=== PATIENT | female | born 1955 | race African-American/Black ===

== ENCOUNTER 2016-06-08 21:33 | Emergency (ER) | payer OTHER, MEDICARE ==
[~2016-06-08] VITALS: Ht 167.6 cm; Wt 95.3 kg
[~2016-06-08 21:33] MED LIST: TAMIFLU 75MG75 MG PO
--- NOTE | 2016-06-08 21:42 | ED CARDIAC/CP/PALPITATIONS ---
History of Present Illness General Chief Complaint: Chest Pain Stated Complaint: CP, DIFF BREATHING [id number] Source: patient Exam Limitations: no limitations Vital Signs & Intake/Output Vital Signs & Intake/Output Vital Signs Date Time Temp Pulse Resp B/P Pulse O2 O2 Flow FiO2 Ox Delivery Rate 06/08 2159 96 06/083 98.3 71 16 145/82 96 Room Air Allergies Coded Allergies: NO KNOWN ALLERGIES (08/21/15) Reconcile Medications Amoxicillin/Potassium Clav (Augmentin 875-125 Tablet) 875 MG-125 MG TABLET 1 TAB PO BID BRONCHITIS Oseltamivir Phosphate (Tamiflu 75MG) 75 MG CAP 1 CAP PO BID FLU Prednisolone 15 MG/5 ML SOLUTION 10 ML PO QDAY ASTHMA Triage Note: PT TO ED C/O "IT FEELS LIKE SOMEONE'S SITTING ON MY CHEST" X2 MONTHS. PT STATES SHE WAS SEEN AT [place] ED, HAD EKG AND CHEST XRAY AND WAS TOLD IT WAS NORMAL. FOLLOWED UP WITH PCP AND WAS TAKING INHALER WITH NO RELIEF. TONIGHT PT STATES SHE FELT LIGHTHEADED AND NAUSEOUS IN ADDITION TO CHEST PRESSURE. DENIES FEVERS/CHILLS/BODY ACHES. Triage Nurses Notes Reviewed? yes Onset: Gradual Duration: week(s):, waxing and waning Timing: recent history Quality/Severity: mild, moderate Location: central Radiation: no radiation Activities at Onset: none Prior Chest Pain/Card Workup: seen in ed previously at [place], given inhaler. Modifying Factors: Improves With: rest. HPI: 60 yo woman in prior good health, presents with chest pressure and wheezing, intermittenly for the past month. She notes also increased sputum and cough over the past few days. She notes that she was seen at the [place] a few weeks ago. By her report, she shares that she had a negative cxr, was given an inhaler, and states that she did not feel better. She states, "it feels like someone is sitting on my chest." Past History Travel History Traveled to [place] past 21 day No Medical History Any Pertinent Medical History? see below for history Cardiovascular: hyperlipidemia Surgical History Surgical History: none Psychosocial History Who do you live with Family What is your primary language Kiswahili Family History Hx Contributory? No Review of Systems Review of Systems Constitutional: Reports: no symptoms. EENTM: Reports: no symptoms. Respiratory: Reports: no symptoms. Cardiovascular: Reports: no symptoms. GI: Reports: no symptoms. Genitourinary: Reports: no symptoms. Musculoskeletal: Reports: no symptoms. Skin: Reports: no symptoms. Neurological/Psychological: Reports: no symptoms. Hematologic/Endocrine: Reports: no symptoms. Immunologic/Allergic: Reports: no symptoms. All Other Systems: Reviewed and Negative Physical Exam Physical Exam General Appearance: well developed/nourished, no apparent distress Head: atraumatic, normal appearance Eyes: Bilateral: normal appearance. Ears, Nose, Throat: normal pharynx, normal ENT inspection Neck: normal inspection, supple, full range of motion Respiratory: chest non-tender, rhonchi Cardiovascular: regular rate/rhythm Gastrointestinal: normal bowel sounds, soft, non-tender, no organomegaly Back: normal inspection, normal range of motion Extremities: normal inspection, normal capillary refill, normal range of motion, no edema Neurologic/Psych: no motor/sensory deficits, awake, alert, oriented x 3 Skin: intact, normal color, warm/dry Core Measures ACS in differential dx? No Severe Sepsis Present: No Septic Shock Present: No Progress Differential Diagnosis: AMI, CHF/pulm edema, costochondritis, pneumonia Plan of Care: Orders Procedure Date/time Status TROPONIN LEVEL 06/08 2141 Complete D-DIMER 06/08 2141 Complete COMPREHENSIVE METABOLIC PANEL 06/08 2141 Complete CBC WITHOUT DIFFERENTIAL 06/08 2141 Complete EKG 06/08 2133 Active Current Medications Sig/Len Start time Last Medication Dose Stop Time Status Admin Amoxicillin/ 1,000 MG ONCE ONE 06/08 2314 UNVr Clavulanate Potassium 06/08 2315 (Augmentin) Prednisone 60 MG ONCE ONE 06/08 2314 UNVr 06/08 2315 Laboratory Tests 06/08/160: Anion Gap 12, Estimated GFR > 60, BUN/Creatinine Ratio 13.3, Glucose 101 H, Calcium 8.9, Total Bilirubin 0.4, AST 19, ALT 22, Alkaline Phosphatase 79, Troponin I < 0.01, Total Protein 6.8, Albumin 3.7, Globulin 3.1, Albumin/ Globulin Ratio 1.2, D-Dimer < 200, CBC w Diff NO MAN DIFF REQ, RBC 4.16 L, MCV 84.4, MCH 27.7, RDW 14.8 H, MPV 8.4, Gran % 40.2 L, Lymphocytes % 50.6, Monocytes % 6.7, Eosinophils % 1.7, Basophils % 0.8, Absolute Granulocytes 3.0, Absolute Lymphocytes 3.7 H, Absolute Monocytes 0.5, Absolute Eosinophils 0.1, Absolute Basophils 0.1, PUBS MCHC 32.8 L Diagnostic Imaging: Viewed by Me: Radiology Read. Discussed w/RAD: Radiology Read. CXR Impression: developing edema or pneumonia... full report below. Initial ED EKG: normal axis, normal intervals, normal p-waves, normal QRS complex, normal sinus rhythm Comments: PATIENT: GONZALO FAIRCHILD PRESENT AGE: 60 PATIENT ACCOUNT NO: [id number] : 55 LOCATION: [facility] ORDERING PHYSICIAN: KAM NIELSON MD SERVICE DATE: 06/08/16 EXAM TYPE: RAD - XRY-PORTABLE CHEST XRAY EXAMINATION: XR PORTABLE CHEST CLINICAL INFORMATION: Chest pain. COMPARISON: Chest radiographs August 25, 2010. TECHNIQUE: Portable AP view of the chest was obtained. FINDINGS: Low lung volumes. No pleural effusion and no pneumothorax. Bibasilar interstitial opacities and hazy airspace opacities could reflect developing edema or atypical pneumonia. Cardiac silhouette size is normal. There are no acute osseous findings. Anterior fusion hardware at the cervicothoracic junction. IMPRESSION: There are more prominent bibasilar interstitial and hazy airspace opacities that could reflect developing edema or pneumonia. DICTATED BY: SOHA KWOK MD DATE/TIME DICTATED:06/08/162238 WINDMILL MECHANIC:MARGARET DATE/TIME TRANSCRIBED:06/08/162238 CONFIDENTIAL, DO NOT COPY WITHOUT APPROPRIATE AUTHORIZATION. <Electronically signed in Other Vendor System> SIGNED BY: SOHA KWOK MD 06/08/16 Departure Departure Disposition: HOME OR SELF CARE Condition: Stable Clinical Impression Primary Impression: Pneumonia Referrals: BRITANY TAVERAS,LULU Hameed (PCP/Family) Departure Forms: Customer Survey General Discharge Information Prescriptions: Current Visit Scripts Prednisolone 10 ML PO QDAY #40 ML Amoxicillin/Potassium Clav (Augmentin 875-125 Tablet) 1 TAB PO BID #20 TAB Comments 06/08/16, 23:16.... pt felt better after neb... pt with symptoms for more than one month, most consistent with pneumonia. Pt home with abx, steroids. She has an albuterol MDI... Close follow up advocated. I doubt chf. Critical Care Note Critical Care Note Critical Care Time: non-applicable
[2016-06-08 22:19] LABS: ABSOLUTE BASOPHIL COUNT 0.1 /CUMM (0.0-0.2); ABSOLUTE EOSINOPHIL COUNT 0.1 /CUMM (0.0-0.7); ABSOLUTE LYMPH COUNT 3.7 /CUMM (1.2-3.4); ABSOLUTE MONOCYTE COUNT 0.5 /CUMM (0.10-0.60); BASOPHIL % 0.8 % (0.0-2.0); EOSINOPHIL % 1.7 % (0-5); GRANULOCYTE % 40.2 % (42.2-75.2); HEMATOCRIT 35.1 % (37-47); MEAN CORPUSCULAR HGB 27.7 PG (27.0-31.0); MEAN CORPUSCULAR HGB CONC 32.8 G/DL (33.0-37.0); MEAN CORPUSCULAR VOLUME 84.4 FL (81.0-99.0); MEAN PLATELET VOLUME 8.4 FL (7.4-10.4); PLATELET COUNT 284 /CUMM (130-400); RBC DISTRIBUTION WIDTH 14.8 % (11.5-14.5); RED BLOOD CELL CT 4.16 /CUMM (4.20-5.40); WHITE BLOOD CELL COUNT 7.4 /CUMM (4.8-10.8)
--- NOTE | 2016-06-08 22:44 | RADIOLOGY REPORT ---
EXAMINATION: XR PORTABLE CHEST CLINICAL INFORMATION: Chest pain. COMPARISON: Chest radiographs August 25, 2010. TECHNIQUE: Portable AP view of the chest was obtained. FINDINGS: Low lung volumes. No pleural effusion and no pneumothorax. Bibasilar interstitial opacities and hazy airspace opacities could reflect developing edema or atypical pneumonia. Cardiac silhouette size is normal. There are no acute osseous findings. Anterior fusion hardware at the cervicothoracic junction. IMPRESSION: There are more prominent bibasilar interstitial and hazy airspace opacities that could reflect developing edema or pneumonia.
[2016-06-08] MEDS ORDERED: AUGMENTIN 875-1 EACH PO (23:14)
[2016-06-08] MEDS ORDERED: PREDNISOLO15 MG/5 M4 PO (23:14)
[2016-06-08 23:40] VITALS: BP 138/85
== END 2016-06-08 23:39 ==
LOC: ERH 21:33
PROVIDERS: Pediatrics
DX: J18.9 Pneumonia, unspecified organism (principal); R07.89 Other chest pain
CPT/HCPCS: 1263; 93005; 93010; J3490

== ENCOUNTER 2016-06-11 23:36 | Emergency (ER) | payer OTHER, MEDICARE ==
[~2016-06-11] VITALS: Ht 167.6 cm; Wt 96.2 kg
[~2016-06-11 23:36] MED LIST changes: +AUGMENTIN 875-1 EACH PO; +PREDNISOLO15 MG/5 M4 PO
--- NOTE | 2016-06-11 23:49 | ED DYSPNEA/ASTHMA COMPLAINT ---
History of Present Illness General Chief Complaint: General Adult Stated Complaint: SENT IN BY DR NIELSON FEVER,CHILLS" SEEN THE OTH Source: patient Exam Limitations: no limitations Vital Signs & Intake/Output Vital Signs & Intake/Output Vital Signs Date Time Temp Pulse Resp B/P Pulse O2 O2 Flow FiO2 Ox Delivery Rate 06/12 0126 97 Room Air 06/12 0037 100.0 94 18 113/78 98 Allergies Coded Allergies: NO KNOWN ALLERGIES (08/21/15) Reconcile Medications Amoxicillin/Potassium Clav (Augmentin 875-125 Tablet) 875 MG-125 MG TABLET 1 TAB PO BID BRONCHITIS Oseltamivir Phosphate (Tamiflu 75MG) 75 MG CAP 1 CAP PO BID FLU Prednisolone 15 MG/5 ML SOLUTION 10 ML PO QDAY ASTHMA Triage Nurses Notes Reviewed? yes Onset: Gradual Duration: week(s):, waxing and waning Timing: recent history Severity: moderate Activities at Onset: none Prior Episodes/Possible Cause: chronic episodes Modifying Factors: Improves With: rest. Associated Symptoms: cough, fever, wheezing HPI: 60-year-old woman with several weeks of coughing productive of phlegm and wheezing. She was seen in the emergency department 2 days ago, prescribed steroids and antibiotics. However, due to a glitch with her insurance card, she was unable to flower buncher or picker the antibiotics and steroids. Her symptoms have progressed. She feels body aches further wheezing cough productive of phlegm. She went to the [place] where she got 1 dose of azithromycin for free. She presents here seeking further care. Of note, she states that the insurance issues have resolved. She will be able to flower buncher or picker the antibiotics later on this morning. She has no chest pain headache rigors, nausea, vomiting, diarrhea. Past History Medical History Any Pertinent Medical History? see below for history Neurological: NONE EENT: NEHEMIAH Cardiovascular: hyperlipidemia Respiratory: NONE Gastrointestinal: GALLSTONES FATTY LIVER Hepatic: NONE Renal: NONE Musculoskeletal: osteoarthritis Endocrine: NONE Blood Disorders: NONE Cancer(s): NONE Surgical History Surgical History: none Psychosocial History Who do you live with Family What is your primary language Maori Family History Hx Contributory? No Review of Systems Review of Systems Constitutional: Reports: no symptoms. EENTM: Reports: no symptoms. Respiratory: Reports: no symptoms. Cardiovascular: Reports: no symptoms. GI: Reports: no symptoms. Genitourinary: Reports: no symptoms. Musculoskeletal: Reports: no symptoms. Skin: Reports: no symptoms. Neurological/Psychological: Reports: no symptoms. Hematologic/Endocrine: Reports: no symptoms. Immunologic/Allergic: Reports: no symptoms. All Other Systems: Reviewed and Negative Physical Exam Physical Exam General Appearance: well developed/nourished, mild distress Head: atraumatic, normal appearance Eyes: Bilateral: normal appearance. Ears, Nose, Throat: normal pharynx, normal ENT inspection Neck: normal inspection, supple, full range of motion Respiratory: rhonchi, no respiratory distress Cardiovascular: regular rate/rhythm Gastrointestinal: normal bowel sounds, soft, non-tender, no organomegaly Extremities: normal inspection, normal capillary refill, normal range of motion, no edema Neurologic/Psych: no motor/sensory deficits, awake, alert, oriented x 3 Skin: intact, normal color, warm/dry Core Measures ACS in differential dx? No Severe Sepsis Present: No Septic Shock Present: No Progress Differential Diagnosis: asthma, bronchitis, CHF, COPD, pneumonia Plan of Care: Orders Procedure Date/time Status EKG 06/128 Active TROPONIN LEVEL 06/12 2347 Complete D-DIMER 06/12 2347 Complete COMPREHENSIVE METABOLIC PANEL 06/12 2347 Complete CBC WITHOUT DIFFERENTIAL 06/12 2347 Complete B-TYPE NATRIURETIC PEP (BNP) 06/12 2347 Complete Laboratory Tests 06/12/16 0102: Anion Gap 10, Estimated GFR > 60, BUN/Creatinine Ratio 16.3, Glucose 104 H, Calcium 9.1, Total Bilirubin 0.5, AST 17, ALT 21, Alkaline Phosphatase 78, Troponin I < 0.01, Lvx-U-Ibakcfeiobk Pept 27.7, Total Protein 7.1, Albumin 3.8, Globulin 3.3, Albumin/Globulin Ratio 1.2, D-Dimer 264 H, CBC w Diff NO MAN DIFF REQ, RBC 4.39, MCV 84.8, MCH 28.3, RDW 15.0 H, MPV 8.7, Gran % 49.7, Lymphocytes % 33.3, Monocytes % 13.9 H, Eosinophils % 1.9, Basophils % 1.2, Absolute Granulocytes 3.1, Absolute Lymphocytes 2.1, Absolute Monocytes 0.9 H, Absolute Eosinophils 0.1, Absolute Basophils 0.1, PUBS MCHC 33.4 Diagnostic Imaging: Viewed by Me: Radiology Read. Discussed w/RAD: Radiology Read. CXR Impression: no acute abnormality, no infiltrates, normal size heart, normal mediastinum Initial ED EKG: normal axis, normal intervals, normal p-waves, normal QRS complex, normal sinus rhythm Comments: PATIENT: GONZALO FAIRCHILD PRESENT AGE: 60 PATIENT ACCOUNT NO: [id number] : 55 LOCATION: [facility] [place] ORDERING PHYSICIAN: KAM NIELSON MD SERVICE DATE: 06/12/16 EXAM TYPE: RAD - XRY-CHEST XRAY, PA AND LATERAL EXAMINATION: PA and lateral chest radiograph CLINICAL INFORMATION: Dyspnea COMPARISON: Chest x-ray fibroid 2016 TECHNIQUE: 2 views of the chest were obtained. FINDINGS: Symmetric lung inflation. No focal consolidation, pleural effusion, or pneumothorax. Cardiac silhouette size is normal. There are no acute osseous findings. C5-C7 ACDF changes again noted. IMPRESSION: No acute pulmonary process DICTATED BY: SOHA KWOK MD DATE/TIME DICTATED:06/12/16147 ADMISSION NURSE:MARGARET DATE/TIME TRANSCRIBED:06/12/16147 CONFIDENTIAL, DO NOT COPY WITHOUT APPROPRIATE AUTHORIZATION. <Electronically signed in Other Vendor System> SIGNED BY: SOHA KWOK MD 06/12/16 0153 Departure Departure Disposition: HOME OR SELF CARE Condition: Stable Clinical Impression Primary Impression: Bronchitis Referrals: BRITANY TAVERAS,LULU Hameed (PCP/Family) Departure Forms: Customer Survey General Discharge Information Comments 3.05.30, 2:32am... pt feeling better... labs/xray benign... d-dimer negative by age criteria (<5xage). pt safe for discharge and will flower buncher or picker her medications this morning. close follow up encouraged. Critical Care Note Critical Care Note Critical Care Time: non-applicable
[2016-06-12 00:37] VITALS: BP 113/78
[2016-06-12 01:34] LABS: ABSOLUTE BASOPHIL COUNT 0.1 /CUMM (0.0-0.2); ABSOLUTE EOSINOPHIL COUNT 0.1 /CUMM (0.0-0.7); ABSOLUTE GRANULOCYTE CT 3.1 /CUMM (1.4-6.5); ABSOLUTE LYMPH COUNT 2.1 /CUMM (1.2-3.4); ABSOLUTE MONOCYTE COUNT 0.9 /CUMM (0.10-0.60); BASOPHIL % 1.2 % (0.0-2.0); EOSINOPHIL % 1.9 % (0-5); GRANULOCYTE % 49.7 % (42.2-75.2); HEMATOCRIT 37.2 % (37-47); MEAN CORPUSCULAR HGB 28.3 PG (27.0-31.0); MEAN CORPUSCULAR HGB CONC 33.4 G/DL (33.0-37.0); MEAN CORPUSCULAR VOLUME 84.8 FL (81.0-99.0); MEAN PLATELET VOLUME 8.7 FL (7.4-10.4); PLATELET COUNT 279 /CUMM (130-400); RED BLOOD CELL CT 4.39 /CUMM (4.20-5.40); WHITE BLOOD CELL COUNT 6.3 /CUMM (4.8-10.8)
--- NOTE | 2016-06-12 01:53 | RADIOLOGY REPORT ---
EXAMINATION: PA and lateral chest radiograph CLINICAL INFORMATION: Dyspnea COMPARISON: Chest x-ray fibroid 26 2016 TECHNIQUE: 2 views of the chest were obtained. FINDINGS: Symmetric lung inflation. No focal consolidation, pleural effusion, or pneumothorax. Cardiac silhouette size is normal. There are no acute osseous findings. C5-C7 ACDF changes again noted. IMPRESSION: No acute pulmonary process
== END 2016-06-12 03:01 ==
LOC: ERH 23:36
PROVIDERS: Pediatrics
DX: J40 Bronchitis, not specified as acute or chronic (principal)
CPT/HCPCS: 1263; 93005; 93010; J0696

== ENCOUNTER 2016-06-17 19:01 | Emergency (ER) | payer OTHER, MEDICARE ==
[~2016-06-17] VITALS: Ht 167.6 cm; Wt 96.2 kg
--- NOTE | 2016-06-17 19:40 | ED DYSPNEA/ASTHMA COMPLAINT ---
See Addendum History of Present Illness General Chief Complaint: Dyspnea (COPD, CHF, Other) Stated Complaint: SOB,WHEEZING,HERE 06/11 FOR SAME DX W/PNA Source: patient, old records Exam Limitations: no limitations Vital Signs & Intake/Output Vital Signs & Intake/Output Vital Signs Date Time Temp Pulse Resp B/P Pulse O2 O2 Flow FiO2 Ox Delivery Rate 06/17 2201 98.0 76 16 140/76 95 Room Air 06/17 2021 95 06/17 194 95 Room Air Room Air 06/17 1908 97.7 80 20 138/88 96 Room Air Allergies Coded Allergies: metformin (SEVERE DIARRHEA 06/17/16) Reconcile Medications Albuterol Sulfate (Ventolin Hfa) 90 MCG HFA.AER.AD 2 PUF INH Q4-6 PRN PRN shortness of breath Benzonatate (Tessalon Perle) 100 MG CAPSULE 1 CAP PO TID PRN COUGH Prednisone 10 MG TABLET 1 TAB PO AD INFLAMMATION DAY1/DAY2 FOUR TABS DAY3/DAY4 THREE TABS DAY5/DAY6 TWO TABS DAY 7 ONE TAB Robitussin AC (Guaifenesin-Codeine Syrup) 200 MG-20 MG/10 ML LIQUID 10 ML PO TID PRN COUGH 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 DX WITH PNA HERE ON 06/11. "THIS IS MY 5 TH TRIP HERE IN 2 WEEKS FOR THE SAME THING" FINISHED ABX 2 DAYS AGO CONGESTED COUGH NOTED. STATES IS WORSE AT NIGHT Triage Nurses Notes Reviewed? yes Onset: Gradual Duration: getting worse, intermittent Timing: recent history Severity: moderate Activities at Onset: none Prior Episodes/Possible Cause: frequent episodes Modifying Factors: Improves With: rest. Worsens With: movement. HPI: Patient is a 68-year-old female with an unremarkable past medical history who presents emergency with a five-week history of persistent wheezing shortness of breath white productive cough fevers and chills body aches and burning sensation substernal chest wall pain and dyspnea on exertion. Patient has been evaluated 5 times in the emergency room during symptoms and which she has been on courses of antibiotics steroids and inhaler treatments with no relief of symptoms. Patient's last steroid use was on Thursday 2 days ago. Patient denies any smoking history. Denies any similar sick contacts. Denies any neck pain neck stiffness headaches hemoptysis leg swelling nausea vomiting arm pain jaw pain history of DVT or PE. (SHIRA MARKS) Past History Travel History Traveled to [place] past 21 day No Medical History Any Pertinent Medical History? see below for history Neurological: NONE EENT: NEHEMIAH Cardiovascular: hyperlipidemia Respiratory: obstructive sleep apnea, pneumonia Gastrointestinal: GALLSTONES FATTY LIVER Hepatic: NONE Renal: NONE Musculoskeletal: chronic back pain, osteoarthritis Endocrine: NONE Blood Disorders: NONE Cancer(s): NONE Surgical History Surgical History: none Psychosocial History Who do you live with Family What is your primary language Cape Verdean Tobacco Use: Never used ETOH Use: occasional use Illicit Drug Use: denies illicit drug use Family History Hx Contributory? No (SHIRA MARKS) Review of Systems Review of Systems Constitutional: Reports: see HPI, chills, fever. EENTM: Reports: no symptoms. Respiratory: Reports: see HPI, cough, short of breath, wheezing. Cardiovascular: Reports: see HPI, chest pain. GI: Reports: no symptoms. Genitourinary: Reports: no symptoms. Musculoskeletal: Reports: no symptoms. Skin: Reports: no symptoms. Neurological/Psychological: Reports: no symptoms. Hematologic/Endocrine: Reports: no symptoms. Immunologic/Allergic: Reports: no symptoms. All Other Systems: Reviewed and Negative (SHIRA MARKS) Physical Exam Physical Exam General Appearance: no apparent distress, alert, comfortable Respiratory: chest non-tender, no respiratory distress, RHONCHI AND BILATERAL POSTERIOR WHEEZING NOTED Comments: Well-developed well-nourished person in no acute distress HEENT: Normal EENT exam, extraocular motion intact, no nystagmus. Pupils equally round and reactive to light and accommodation. Nose is atraumatic. External auditory canal and Tympanic membranes clear. Pharynx normal. No swelling or edema. Neck: Supple, no lymphadenopathy, normal range of motion without pain or tenderness Back: Nontender, no CVA tenderness. Cardiovascular: Regular rate and rhythms no murmurs rubs or gallops, normal JVP Abdomen: Soft, nontender nondistended, no appreciable organomegaly. Normal bowel sounds. No ascites Extremity: No edema, no calf tenderness to palpation, normal and equal pulses. Neuro: Alert oriented x3, motor sensory normal, Skin: No appreciable rash on exposed skin, skin is warm and dry. Psych: Mood and affect is normal, memory and judgment is normal. Core Measures ACS in differential dx? Yes Severe Sepsis Present: No Septic Shock Present: No (SHIRA MARKS) Progress Differential Diagnosis: asthma, AMI, bronchitis, costochondritis, CHF, COPD, musculoskeletal pain, pericarditis, pulmonary embolism, pneumonia, pneumothorax, rib fracture, unstable angina Plan of Care: Orders Procedure Date/time Status TROPONIN LEVEL 06/17 1954 Complete D-DIMER 06/17 1954 Complete COMPREHENSIVE METABOLIC PANEL 06/17 1954 Complete CBC WITHOUT DIFFERENTIAL 06/17 1954 Complete EKG 06/17 1954 Active Laboratory Tests 06/17/16 2020: Anion Gap 10, Estimated GFR > 60, BUN/Creatinine Ratio 21.4, Glucose 93, Calcium 8.9, Total Bilirubin 0.4, AST 16, ALT 20, Alkaline Phosphatase 75, Troponin I < 0.01, Total Protein 6.7, Albumin 3.6, Globulin 3.1, Albumin/Globulin Ratio 1.2, D-Dimer 226, CBC w Diff NO MAN DIFF REQ, RBC 4.36, MCV 85.2, MCH 27.5, RDW 14.9 H, MPV 8.4, Gran % 46.4, Lymphocytes % 44.7, Monocytes % 7.4, Eosinophils % 1.0, Basophils % 0.5, Absolute Granulocytes 5.0, Absolute Lymphocytes 4.8 H, Absolute Monocytes 0.8 H, Absolute Eosinophils 0.1, Absolute Basophils 0.1, PUBS MCHC 32.3 L Patient currently is in RESPIRATORY distress in no apparent distress and had a nebulizer treatment with complete resolution of wheezing. Rhonchi were unremarkable after reexamination. Patient was afebrile. Patient had unremarkable EKG and chest x-ray findings. I do not suspect patient has a pulmonary embolism in which d-dimer was essentially unremarkable. Troponin was unremarkable. Patient was strongly advised to follow-up with primary care doctor for possible prescription of nebulizer treatment which she states that symptoms always resolve with this. Patient also was given referral for pulmonary Upon discharge patient looks well no apparent distress and will comply with discharge instructions and had no questions. (SHIRA MARKS) Diagnostic Imaging: Viewed by Me: Radiology Read. Radiology Impression: no acute abnormality Initial ED EKG: normal intervals, normal p-waves, normal QRS complex, 77 BPM NORMAL SINUS RHYTHM Prior EKG: unchanged Comments: PATIENT: GONZALO FAIRCHLID PRESENT AGE: 60 PATIENT ACCOUNT NO: [id number] : 55 LOCATION: [facility] ORDERING PHYSICIAN: INGE VINCENT MD SERVICE DATE: 06/17/16 EXAM TYPE: RAD - XRY-CHEST XRAY, PA AND LATERAL EXAMINATION: XR CHEST CLINICAL INFORMATION: Cough and shortness of breath. Evaluate for pneumonia. COMPARISON: Chest x-ray 06/12/2016. TECHNIQUE: PA and lateral views of the chest were obtained. FINDINGS: The lungs are mildly hypoinflated, without focal airspace consolidation. Minimal linear atelectasis within the left upper lobe and lingula. No pleural effusions or pneumothoraces are identified. Cardiomediastinal contours are within normal limits. Soft tissues are unremarkable. No acute osseous abnormality is identified. Partially visualized mechanical hardware along the lower cervical spine. IMPRESSION: No acute pulmonary process. (SHIRA MARKS) Departure Departure Disposition: HOME OR SELF CARE Condition: Stable Clinical Impression Primary Impression: Upper respiratory infection Secondary Impressions: Wheezing Referrals: Fredy DAWSON MD, MD,LULU Hameed (PCP/Family) ALEJANDRINA HERNANDEZ MD Additional Instructions: As discussed tomorrow follow-up with your primary care doctor and please established tomorrow production control expert Fredy Dawson MD or Dr. Hernandez for further evaluation treatment. Begin the prescription of Tessalon Perles and Robitussin with codeine for cough, and begin the prescription of prednisone tomorrow as you receive this medication emergency room today. Begin over-the- counter Mucinex for relief of congestion. If symptoms worsen return to emergency room. Begin the prescription of Ventolin for shortness of breath Departure Forms: Customer Survey General Discharge Information Prescriptions: Current Visit Scripts Prednisone 1 TAB PO AD #19 TAB DAY1/DAY2 FOUR TABS DAY3/DAY4 THREE TABS DAY5/DAY6 TWO TABS DAY 7 ONE TAB Benzonatate (Tessalon Perle) 1 CAP PO TID PRN COUGH #21 CAP Robitussin AC (Guaifenesin-Codeine Syrup) 10 ML PO TID PRN COUGH #100 ML DO NOT TAKE THIS MEDICATION WHILE OPERATING A MOTOR VEHICLE Albuterol Sulfate (Ventolin Hfa) 2 PUF INH Q4-6 PRN PRN shortness of breath #1 INHAL (SHIRA MARKS) PA/HEALTHCARE INTERPRETER Co-Sign Statement Statement: ED Attending supervision documentation- [] I saw and evaluated the patient. I have also reviewed all the pertinent lab results and diagnostic results. I agree with the findings and the plan of care as documented in the PA's/HEALTHCARE INTERPRETER's documentation. [X] I have reviewed the ED Record and agree with the PA's/HEALTHCARE INTERPRETER's documentation. [] Additions or exceptions (if any) to the PAs/HEALTHCARE INTERPRETER's note and plan are summarized below: [] (MELISA TAVERAS,INGE Hurtado) Critical Care Note Critical Care Note Critical Care Time: non-applicable (SHIRA MARKS)
--- NOTE | 2016-06-17 20:23 | RADIOLOGY REPORT ---
EXAMINATION: XR CHEST CLINICAL INFORMATION: Cough and shortness of breath. Evaluate for pneumonia. COMPARISON: Chest x-ray 06/12/2016. TECHNIQUE: PA and lateral views of the chest were obtained. FINDINGS: The lungs are mildly hypoinflated, without focal airspace consolidation. Minimal linear atelectasis within the left upper lobe and lingula. No pleural effusions or pneumothoraces are identified. Cardiomediastinal contours are within normal limits. Soft tissues are unremarkable. No acute osseous abnormality is identified. Partially visualized mechanical hardware along the lower cervical spine. IMPRESSION: No acute pulmonary process.
[2016-06-17 20:32] LABS: ABSOLUTE BASOPHIL COUNT 0.1 /CUMM (0.0-0.2); ABSOLUTE EOSINOPHIL COUNT 0.1 /CUMM (0.0-0.7); ABSOLUTE LYMPH COUNT 4.8 /CUMM (1.2-3.4); ABSOLUTE MONOCYTE COUNT 0.8 /CUMM (0.10-0.60); BASOPHIL % 0.5 % (0.0-2.0); GRANULOCYTE % 46.4 % (42.2-75.2); HEMATOCRIT 37.2 % (37-47); MEAN CORPUSCULAR HGB 27.5 PG (27.0-31.0); MEAN CORPUSCULAR HGB CONC 32.3 G/DL (33.0-37.0); MEAN CORPUSCULAR VOLUME 85.2 FL (81.0-99.0); MEAN PLATELET VOLUME 8.4 FL (7.4-10.4); PLATELET COUNT 312 /CUMM (130-400); RBC DISTRIBUTION WIDTH 14.9 % (11.5-14.5); RED BLOOD CELL CT 4.36 /CUMM (4.20-5.40)
[2016-06-17 20:35] LABS: WHITE BLOOD CELL COUNT 10.7 /CUMM (4.8-10.8)
[2016-06-17] MEDS ORDERED: GUAIFENESIN-COD10 ML PO (21:48)
[2016-06-17] MEDS ORDERED: PREDNISONE10 M2 PO (21:48)
[2016-06-17] MEDS ORDERED: TESSALON PERLE100 M1 PO (21:48)
[2016-06-17] MEDS ORDERED: VENTOLIN HFA18 GM INH (21:50)
[2016-06-17 22:02] VITALS: BP 140/76
== END 2016-06-17 22:07 ==
LOC: ERH 19:01
PROVIDERS: Physician Assistant
DX: J06.9 Acute upper respiratory infection, unspecified (principal); R06.2 Wheezing; R07.2 Precordial pain
CPT/HCPCS: 1263; 93005; 93010; 96374; J2930